=== PATIENT | male | born 1980 | race Caucasian/White ===

== ENCOUNTER 2020-01-30 23:26 | Emergency (ER) | payer MEDICARE, OTHER ==
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
== END 2020-01-31 02:00 | disposition home or self-care (01) ==
LOC: LB.ED 23:26
DX: S99.922A Unspecified injury of left foot, initial encounter (principal); F17.210 Nicotine dependence, cigarettes, uncomplicated; W20.8XXA Other cause of strike by thrown, projected or falling object, initial encounter
CPT/HCPCS: 73620-LT; 99282; 99283

== ENCOUNTER 2024-07-10 20:25 | Emergency (ER) | payer MEDICARE, MEDICAID ==
[2024-07-10] MEDS: Sodium Chloride 0.9% 10 ML Syringe FLUSH PRN (21:30)
[2024-07-10 21:47] LABS: HEMATOCRIT 49.4 % (40.0-54.0); HEMOGLOBIN 16.7 g/dL (13.0-18.0); MEAN CORPUSCULAR HEMOGLOBIN 30.1 pg (27.0-32.0); MEAN CORPUSCULAR HGB CONC 33.8 g/dL (31.0-35.0); MEAN PLATELET VOLUME 10.2 fL (6.0-10.0); RED BLOOD CELL COUNT 5.55 M/uL (4.50-6.50); RED CELL DISTRIBUTION WIDTH 13.2 % (11.0-16.0); WHITE BLOOD CELL COUNT,WBC 7.7 K/uL (4.0-11.0)
[2024-07-10 21:49] LABS: AMPHETAMINES SCREEN, URINE POSITIVE (NEGATIVE); BARBITURATE SCREEN,URINE NEGATIVE (NEGATIVE); BENZODIAZEPINES SCREEN,URINE NEGATIVE (NEGATIVE); METHAMPHETAMINES SCREEN, URINE POSITIVE (NEGATIVE)
[2024-07-10 21:50] LABS: METHADONE SCREEN, URINE NEGATIVE (NEGATIVE); OXYCODONE SCREEN,URINE NEGATIVE (NEGATIVE); THC SCREEN,URINE 50 NG/ML NEGATIVE (NEGATIVE)
[2024-07-10] MEDS: Ketorolac 15 MG/ML SDV IVPUSH ONE (21:55)
[2024-07-10 22:12] LABS: A/G RATIO 1.1 (0.8-2.0); ALANINE AMINOTRANSFERASE,ALT 21 U/L (12-78); ALBUMIN 3.9 g/dL (3.4-5.0); ALKALINE PHOSPHATASE 120 U/L (46-116); ANION GAP 12.3 mmol/L (5.0-15.0); ASPARTATE AMNIOTRANSFERASE,AST 20 U/L (15-37); BILIRUBIN TOTAL 0.2 mg/dL (0.0-1.0); BLOOD UREA NITROGEN,BUN 7 mg/dL (8-26); BUN/CREATININE RATIO 6.6 (6-25); C-REACTIVE PROTEIN < 5.0 mg/L (<5.0); CALCIUM 9.4 mg/dL (8.5-10.1); CARBON DIOXIDE,CO2 29.4 mmol/L (21.0-32.0); CHLORIDE,CL 104 mmol/L (98-107); CREATININE 1.06 mg/dL (0.70-1.30); EST CRCL DRUG DOSING (CG) 81.87 mL/min; ESTIMATED GFR 88 mL/min (>60); GLUCOSE RANDOM 92 mg/dL (74-100); MAGNESIUM 2.3 mg/dL (1.8-2.4); POTASSIUM,K 3.7 mmol/L (3.5-5.1); PROTEIN TOTAL,TP 7.4 g/dL (6.4-8.2); SODIUM,NA 142 mmol/L (136-145)
[2024-07-10] MEDS: Lisinopril 5 MG Tab PO ONE (23:32)
[2024-07-15 15:29] LABS: B. BURGDORFERI IGG IMMUNOBLOT Negative (Negative); B. BURGDORFERI IGM IMMUNOBLOT Negative (Negative)
== END 2024-07-10 22:40 | disposition home or self-care (01) ==
LOC: LB.ED 20:25
DX: S01.00XA Unspecified open wound of scalp, initial encounter (principal); S21.109A Unspecified open wound of unspecified front wall of thorax without penetration into thoracic cavity, initial encounter; S71.002A Unspecified open wound, left hip, initial encounter; S71.001A Unspecified open wound, right hip, initial encounter; I10 Essential (primary) hypertension; Z79.899 Other long term (current) drug therapy; Z77.29 Contact with and (suspected) exposure to other hazardous substances; X58.XXXA Exposure to other specified factors, initial encounter; Y93.89 Activity, other specified
CPT/HCPCS: 36415; 70450; 80053; 80307; 83735; 85027; 86140; 86617; 96374; 99284; 99284-25; A9270-GY; J1885